=== PATIENT | female | born 1970 | race Caucasian/White ===

== ENCOUNTER → 2021-01-30 | Outpatient (CLI) | payer BC ==
[2021-01-30 11:38] LABS: HEMOGLOBIN 12.9 gm/dl (12.3-15.3); RED BLOOD COUNT 4.38 M/UL (4.00-5.10); WHITE BLOOD COUNT 6.1 K/UL (4.5-11.0)
[2021-01-30 12:23] LABS: BUN/CREATININE RATIO 15 (0-10)
[2021-01-31 08:13] LABS: RHEUMATOID ARTHRITIS FACTOR 40.8 IU/mL (0.0-13.9)
== END ==
LOC: LAB 10:34
PROVIDERS: Nurse Practitioner Family
DX: Z00.00 Encounter for general adult medical examination without abnormal findings (principal); M79.2 Neuralgia and neuritis, unspecified; R29.2 Abnormal reflex; M79.10 Myalgia, unspecified site; R20.0 Anesthesia of skin; R20.2 Paresthesia of skin; R51.9 Headache, unspecified; R53.83 Other fatigue
CPT/HCPCS: 36415; 80053; 82607; 84443; 85025; 85652; 86038; 86431

== ENCOUNTER → 2021-02-18 | Outpatient (CLI) | payer BC | LOC: EMI 13:57 | DX: M79.2 Neuralgia and neuritis, unspecified (principal); R29.2 Abnormal reflex | CPT/HCPCS: 70553; A9577 ==